=== PATIENT | male | born 1995 | race African-American/Black ===

== ENCOUNTER 2017-07-29 11:40 | Emergency (ER) | payer OTHER ==
[~2017-07-29] VITALS: Ht 172.7 cm; Wt 72.6 kg
[2017-07-29] MEDS ORDERED: AMOXICILLIN500 M1 PO (12:02)
[2017-07-29] MEDS ORDERED: TESSALON PERLE100 MG PO (12:02)
[2017-07-29 12:29] VITALS: BP 149/89
== END 2017-07-29 12:30 | disposition home or self-care (01) ==
LOC: ER 11:40
DX: J01.90 Acute sinusitis, unspecified (principal); J45.909 Unspecified asthma, uncomplicated

== ENCOUNTER 2018-01-09 23:28 | Emergency (ER) | payer OTHER ==
[~2018-01-09] VITALS: Ht 172.7 cm; Wt 72.6 kg
[~2018-01-09 23:28] MED LIST: AMOXICILLIN500 M1 PO; TESSALON PERLE100 MG PO
[2018-01-10 00:55] VITALS: BP 137/92
== END 2018-01-10 00:56 | disposition home or self-care (01) ==
LOC: ER 23:28
DX: S60.221A Contusion of right hand, initial encounter (principal); J45.909 Unspecified asthma, uncomplicated; W22.8XXA Striking against or struck by other objects, initial encounter; Y92.89 Other specified places as the place of occurrence of the external cause; Y93.89 Activity, other specified; Y99.8 Other external cause status

== ENCOUNTER 2018-06-16 11:22 | Emergency (ER) | payer OTHER ==
[~2018-06-16] VITALS: Ht 172.7 cm; Wt 67.1 kg
[2018-06-16 11:35] LABS: URINE BILIRUBIN NEGATIVE (Negative); URINE BLOOD NEGATIVE (Negative); URINE CLARITY CLEAR; URINE COLOR YELLOW; URINE GLUCOSE-RANDOM* NEGATIVE (Negative); URINE KETONES NEGATIVE (Negative); URINE LEUKOCYTES-REFLEX NEGATIVE (Negative); URINE NITRITE-REFLEX NEGATIVE (Negative); URINE PROTEIN (DIPSTICK) NEGATIVE (Negative); URINE SPECIFIC GRAVITY 1.015 (1.005-1.035); URINE UROBILINOGEN 0.2 E.U./dl (0.2-1.0)
[2018-06-16 12:08] LABS: ABSOLUTE NEUTROPHILS 1.4 thou/uL (1.4-8.2); BASOPHILS 1.2 % (0.0-2.0); EOSINOPHILS 2.6 % (0.0-3.0); HEMATOCRIT 42.9 % (42.0-52.0); MCH 29.9 pg (26.0-34.0); MCV 85.4 fL (80.0-100.0); MONOCYTES 7.7 % (1.0-8.0); PLATELET COUNT 132 thou/uL (150-400); POLYS 30.5 % (36.0-66.0); RBC 5.03 mil/uL (4.50-6.00); RDW 13.4 % (10.5-14.5); WBC 4.6 thou/uL (4.0-11.0)
[2018-06-16 12:11] LABS: CALCIUM 8.7 mg/dL (8.5-10.1); POTASSIUM 3.7 mmol/L (3.5-5.1)
[2018-06-16 12:16] LABS: ALBUMIN 3.6 g/dL (3.4-5.0); TOTAL BILIRUBIN 0.7 mg/dL (<0.1-1.0); TOTAL PROTEIN 6.5 g/dL (6.4-8.2)
[2018-06-16] MEDS ORDERED: CARAFATE 1 GM TA1 G1 PO (13:27)
[2018-06-16] MEDS ORDERED: ZOFRAN ODT4 MG PO (13:27)
[2018-06-16] MEDS ORDERED: PROTONIX40 M1 PO (13:27)
== END 2018-06-16 15:29 | disposition home or self-care (01) ==
LOC: ER 11:22
PROVIDERS: Emergency Medicine
DX: R10.11 Right upper quadrant pain (principal); J45.909 Unspecified asthma, uncomplicated

== ENCOUNTER 2018-10-07 09:16 | Emergency (ER) | payer OTHER ==
[~2018-10-07] VITALS: Ht 172.7 cm; Wt 68.0 kg
[~2018-10-07 09:16] MED LIST changes: +CARAFATE 1 GM TA1 G1 PO; +NORCO 5-325 TA1 EACH PO; +PROTONIX40 M1 PO; +ZOFRAN ODT4 MG PO
[2018-10-07 09:39] LABS: HEMATOCRIT 45.5 % (42.0-52.0); HEMOGLOBIN 15.4 gm/dL (14.0-18.0); MCH 29.1 pg (26.0-34.0); MCHC 33.9 g/dL (28.0-37.0); MCV 85.9 fL (80.0-100.0); PLATELET COUNT 137 thou/uL (150-400); RBC 5.29 mil/uL (4.50-6.00); RDW 13.5 % (10.5-14.5); WBC 4.6 thou/uL (4.0-11.0)
[2018-10-07 09:46] LABS: CALCIUM 8.6 mg/dL (8.5-10.1); POTASSIUM 3.9 mmol/L (3.5-5.1)
[2018-10-07 10:21] LABS: ATYPICAL LYMPHS 6 %; PLATELET ESTIMATE NORMAL
[2018-10-07 11:07] VITALS: BP 124/72
== END 2018-10-07 11:37 | disposition home or self-care (01) ==
LOC: ER 09:16
PROVIDERS: Student in an Organized Health Care Education/Training Program
DX: F45.8 Other somatoform disorders (principal); J45.909 Unspecified asthma, uncomplicated; Z79.899 Other long term (current) drug therapy

== ENCOUNTER 2018-12-28 21:09 | Emergency (ER) | payer OTHER ==
[~2018-12-28] VITALS: Ht 172.7 cm; Wt 68.0 kg
[2018-12-28 21:15] VITALS: BP 117/66
[2018-12-28] MEDS ORDERED: NAPROSYN500 MG PO (21:37)
== END 2018-12-28 21:48 | disposition home or self-care (01) ==
LOC: ER 21:09
DX: S60.221A Contusion of right hand, initial encounter (principal); J45.909 Unspecified asthma, uncomplicated; W22.8XXA Striking against or struck by other objects, initial encounter; Y93.89 Activity, other specified; Y92.89 Other specified places as the place of occurrence of the external cause; Y99.8 Other external cause status

== ENCOUNTER 2019-04-14 16:06 | Emergency (ER) | payer OTHER ==
[~2019-04-14] VITALS: Ht 172.7 cm; Wt 66.7 kg
[2019-04-14 16:06] VITALS: BP 109/66
[~2019-04-14 16:06] MED LIST changes: +NAPROSYN500 MG PO
[2019-04-14] MEDS ORDERED: NORFLEX100 MG PO (16:38)
[2019-04-14] MEDS ORDERED: IBUPROFEN 800800 M1 PO (16:41)
== END 2019-04-14 16:45 | disposition home or self-care (01) ==
LOC: ER 16:06
DX: M54.6 Pain in thoracic spine (principal); M54.5 Low back pain; J45.909 Unspecified asthma, uncomplicated

== ENCOUNTER 2019-07-03 13:07 | Emergency (ER) | payer OTHER ==
[~2019-07-03] VITALS: Ht 172.7 cm; Wt 69.4 kg
[~2019-07-03 13:07] MED LIST changes: +IBUPROFEN 800800 M1 PO; +NORFLEX100 MG PO
[2019-07-03 13:09] VITALS: BP 117/79
[2019-07-03] MEDS ORDERED: NAPROSYN500 MG PO (15:59)
== END 2019-07-03 17:05 | disposition home or self-care (01) ==
LOC: ER 13:07
DX: S63.681A Other sprain of right thumb, initial encounter (principal); J45.909 Unspecified asthma, uncomplicated; X50.0XXA Overexertion from strenuous movement or load, initial encounter; Y92.89 Other specified places as the place of occurrence of the external cause; Y93.61 Activity, american tackle football; Y99.8 Other external cause status

== ENCOUNTER 2019-12-28 19:26 | Emergency (ER) | payer OTHER ==
[~2019-12-28] VITALS: Ht 172.7 cm; Wt 72.6 kg
[2019-12-28 19:59] LABS: URINE BILIRUBIN NEGATIVE (Negative); URINE BLOOD 3+ (Negative); URINE CLARITY CLOUDY; URINE COLOR YELLOW; URINE GLUCOSE-RANDOM* NEGATIVE (Negative); URINE KETONES NEGATIVE (Negative); URINE NITRITE-REFLEX NEGATIVE (Negative); URINE PROTEIN (DIPSTICK) 2+ (Negative)
[2019-12-28 20:03] LABS: URINE LEUKOCYTES-REFLEX 3+ (Negative)
[2019-12-28 20:22] LABS: BACTERIA-REFLEX 1-9 Few /HPF (None Seen); CASTS None Seen /LPF (None Seen); CRYSTALS None Seen /LPF (None Seen); MUCUS 4-6 Moderate strn/LPF (None Seen); SQUAMOUS 0-3 Few /LPF (0-3); URINE RBC >20 Many /HPF (0-2); URINE WBC-REFLEX >25 Many /HPF (0-5)
[2019-12-28] MEDS ORDERED: KEFLEX500 M1 PO (20:30)
[2019-12-28 20:40] VITALS: BP 128/80
== END 2019-12-28 20:41 | disposition home or self-care (01) ==
LOC: ER 19:26
PROVIDERS: Emergency Medicine
DX: N34.2 Other urethritis (principal); J45.909 Unspecified asthma, uncomplicated